=== PATIENT | female | born 1960 | race Caucasian/White ===

== ENCOUNTER 2017-02-01 15:40 | Emergency (ER) | payer MEDICAID ==
[~2017-02-01] VITALS: Ht 152.4 cm; Wt 53.0 kg
[~2017-02-01 15:40] MED LIST: GABAPENTIN; OXYBUTYNIN; SIMVASTATIN
[2017-02-01] MEDS ORDERED: LIDOCAINE HCL 1% 20ML VIAL (Pyxis) INJ INFIL ONE (17:30)
[2017-02-01 18:45] VITALS: BP 122/74
[2017-02-01] MEDS ORDERED: KETOROLAC 60MG/2ML VIAL IM ONE (18:45)
== END 2017-02-01 19:01 | disposition home or self-care (01) ==
LOC: ER 16:31
DX: L02.211 Cutaneous abscess of abdominal wall (principal); E11.9 Type 2 diabetes mellitus without complications; E78.00 Pure hypercholesterolemia, unspecified; F12.10 Cannabis abuse, uncomplicated; Z79.899 Other long term (current) drug therapy
CPT/HCPCS: 96372; 99283; J1885; J3490; Z7610